=== PATIENT | female | born 1975 | race Caucasian/White ===

== ENCOUNTER 2016-04-21 12:27 | Emergency (ER) | payer OTHER ==
[~2016-04-21] VITALS: Ht 162.6 cm; Wt 80.0 kg
[2016-04-21 12:29] VITALS: BP 124/64; PULSE 77; RESP 15; TEMP 97.7; O2SAT 95
[2016-04-21 13:09] LABS: AUTOMATED NEUTROPHIL # 7.6 TH/MM3 (1.8-7.7); BASOPHIL # 0.1 TH/MM3 (0-0.2); BASOPHIL % 0.9 % (0.0-2.0); EOSINOPHIL # 0.5 TH/MM3 (0-0.4); EOSINOPHIL % 4.4 % (0.0-4.0); HEMO FLAGS DIFF FINAL; LYMPHOCYTE # 2.1 TH/MM3 (1.0-4.8); MEAN CELL VOLUME 92.6 FL (80.0-100.0); MEAN CORPUSCULAR HEMOGLOBIN 32.5 PG (27.0-34.0); MEAN CORPUSCULAR HGB CONC 35.1 % (32.0-36.0); NEUT % 69.7 % (16.0-70.0); PLATELET COUNT 339 TH/MM3 (150-450); RED CELL DISTRIBUTION WIDTH 12.3 % (11.6-17.2); WHITE BLOOD COUNT 10.9 TH/MM3 (4.0-11.0)
[2016-04-21 13:13] LABS: BLOOD, URINE MOD (NEG); GLUCOSE,URINE NEG (NEG); KETONE, URINE NEG (NEG); MUCUS URINE FEW /lpf (OCC); NITRITE,URINE NEG (NEG); SQUAMOUS EPITHELIAL CELL URINE 1 /hpf (0-5); URINE COLOR YELLOW (YELLW/STRAW)
[2016-04-21 13:15] LABS: COMMENT (UR) CULT NOT INDICATED; CULTURE IF INDICATED CULT NOT INDICATED
[2016-04-21 13:40] LABS: ALT (GPT) 32 U/L (10-53); ANION GAP 7 MEQ/L (5-15); AST (GOT) 19 U/L (15-37); BICARBONATE 27.2 MEQ/L (21.0-32.0); BLOOD UREA NITROGEN 14 MG/DL (7-18); CHLORIDE 107 MEQ/L (98-107); GLOMERULAR FILTRATION RATE 106 ML/MIN (>89); SODIUM (NA) 141 MEQ/L (136-145)
[2016-04-21 13:41] LABS: ALKALINE PHOSPHATASE 110 U/L (45-117); TOTAL BILIRUBIN ADULT 0.4 MG/DL (0.2-1.0)
--- NOTE | 2016-04-21 14:17 | PD ---
HPI Chief Complaint: GI Complaint Time Seen by Provider: 14:20 Travel History International Travel<30 days: No Contact w/Intl Traveler<30days: No Traveled to known affect area: No History of Present Illness HPI 41-year-old female with PMH of recently diagnosed lupus presents to the ED for evaluation of four-day history of nausea, vomiting and diarrhea. Gradual onset. No alleviating or exacerbating factors reported. She states that last episode of vomiting was yesterday. She endorses 2 episodes of loose, nonbloody stool this morning. She denies fever, chills, anorexia, abdominal pain, back pain or dysuria. Patient is currently menstruating. She also complains of scaly lesions in the hairline, present for "weeks." She also complains of chronic, nonproductive cough, worse in the morning. The patient is a current smoker. Patient states that she is currently living in a homeless residential, has not followed up with primary care regarding her lupus diagnosis. Takes no daily medications. Allergic to penicillin. PFSH Past Medical History ?: Not Social History Tobacco Use: Yes Allergies-Medications (Allergen,Severity, Reaction): Coded Allergies: Penicillin (Verified Allergy, Severe, 04/21/16) Reported Meds & Prescriptions Reported Meds & Active Scripts Active Imodium A-D (Loperamide HCl) 2 Mg Tab 2 Mg PO DIRECTED PRN One tablet after each loose stool. Not to exceed 8 tablets per day. Triamcinolone Topical (Triamcinolone Acetonide) 0.1 % Oint 1 Applic TOPICAL BID 15 Days Review of Systems Except as stated in HPI: all other systems reviewed are Neg Physical Exam Narrative GENERAL: Well-nourished, well-developed nontoxic appearing white female in no acute distress. SKIN: Warm and dry. Patient has an intradermal piercing in the midline of the anterior chest. There is mild surrounding erythema, no warmth or discharge. There is also a 1.5 cm erythematous lesions with scaly plaque in the hairline, consistent with psoriasis. HEAD: Normocephalic. Atraumatic. EYES: No scleral icterus. No injection or drainage. PERRLA. EOMI. ENT: Pearly jean tympanic membranes bilaterally. Nasal mucosa is moist. Oropharynx without erythema, edema or exudate. NECK: Supple, trachea midline. No JVD or lymphadenopathy. CARDIOVASCULAR: Regular rate and rhythm without murmurs, gallops, or rubs. 2+ DP and radial pulses bilaterally. RESPIRATORY: Breath sounds clear and equal bilaterally. No accessory muscle use. GASTROINTESTINAL: Abdomen soft, non-tender, nondistended. + Bowel sounds. Mild suprapubic tenderness. MUSCULOSKELETAL: No cyanosis, or edema. Patient is ambulatory and moves extremities spontaneously.. NEUROLOGICAL: Awake and alert. Cranial nerves II through XII intact. Motor and sensory grossly within normal limits. Five out of 5 muscle strength in all muscle groups. Normal speech. BACK: Nontender without obvious deformity. No CVA tenderness. Data Data Last Documented VS Vital Signs Date Time Temp Pulse Resp B/P Pulse Ox O2 Delivery O2 Flow Rate FiO2 04/21/16 12:29 97.7 77 15 124/64 95 Orders Urinalysis - C+S If Indicated (04/21/16 12:39) Ed Urine Pregnancytest Poc (04/21/16 12:39) Complete Blood Count With Diff (04/21/16 12:39) Comprehensive Metabolic Panel (04/21/16 12:39) Group A Rapid Strep Screen (04/21/16 14:35) Labs Laboratory Tests Test 04/21/16 12:50 White Blood Count 10.9 TH/MM3 Red Blood Count 4.10 MIL/MM3 Hemoglobin 13.4 GM/DL Hematocrit 38.0 % Mean Corpuscular Volume 92.6 FL Mean Corpuscular Hemoglobin 32.5 PG Mean Corpuscular Hemoglobin 35.1 % Concent Red Cell Distribution Width 12.3 % Platelet Count 339 TH/MM3 Mean Platelet Volume 7.7 FL Neutrophils (%) (Auto) 69.7 % Lymphocytes (%) (Auto) 19.0 % Monocytes (%) (Auto) 6.0 % Eosinophils (%) (Auto) 4.4 % Basophils (%) (Auto) 0.9 % Neutrophils # (Auto) 7.6 TH/MM3 Lymphocytes # (Auto) 2.1 TH/MM3 Monocytes # (Auto) 0.7 TH/MM3 Eosinophils # (Auto) 0.5 TH/MM3 Basophils # (Auto) 0.1 TH/MM3 CBC Comment DIFF FINAL Differential Comment Urine Color YELLOW Urine Turbidity CLEAR Urine pH 6.0 Urine Specific [place] 1.021 Urine Protein NEG mg/dL Urine Glucose (UA) NEG mg/dL Urine Ketones NEG mg/dL Urine Occult Blood MOD Urine Nitrite NEG Urine Bilirubin NEG Urine Urobilinogen LESS THAN 2.0 MG/DL Urine Leukocyte Esterase NEG Urine RBC 93 /hpf Urine WBC LESS THAN 1 /hpf Urine Squamous Epithelial 1 /hpf Cells Urine Mucus FEW /lpf Microscopic Urinalysis Comment CULT NOT INDICATED Sodium Level 141 MEQ/L Potassium Level 4.0 MEQ/L Chloride Level 107 MEQ/L Carbon Dioxide Level 27.2 MEQ/L Anion Gap 7 MEQ/L Blood Urea Nitrogen 14 MG/DL Creatinine 0.62 MG/DL Estimat Glomerular Filtration 106 ML/MIN Rate Random Glucose 78 MG/DL Calcium Level 8.6 MG/DL Total Bilirubin 0.4 MG/DL Aspartate Amino Transf 19 U/L (AST/SGOT) Alanine Aminotransferase 32 U/L (ALT/SGPT) Alkaline Phosphatase 110 U/L Total Protein 7.1 GM/DL Albumin 3.5 GM/DL [facility] Medical Decision Making Medical Screen Exam Complete: Yes Emergency Medical Condition: Yes Differential Diagnosis versus UTI versus gastritis versus gastroenteritis versus psoriasis versus other Narrative Course 41-year-old female with PMH of recently diagnosed lupus, current smoker presents to the ED for evaluation of four-day history of nausea, vomiting and diarrhea. Gradual onset. No alleviating or exacerbating factors reported. Last episode of vomiting was yesterday. She endorses 2 episodes of loose, nonbloody stool this morning. She denies fever, chills, anorexia, abdominal pain, back pain or dysuria. Patient is currently menstruating. She also complains of scaly lesions in the hairline, present for "weeks." She also complains of chronic, nonproductive cough, worse in the morning. On physical exam this is a well-appearing female in no acute distress. She does have plaque psoriasis in the hairline at the physical exam is otherwise unremarkable. Vitals reviewed, within normal limits. CBC: No leukocytosis or anemia. CMP unremarkable. UA: No indication for culture. Urine test negative. Rapid strep swab pending. Patient is well-appearing, hemodynamically stable. I'll prescribe a few doses of Imodium for continued loose stools, triamcinolone cream for plaque psoriasis. She is instructed to continue with hydration, take medications as prescribed, follow up with a lacquer polisher and primary care provider. She indicated understanding of instructions and is amenable to plan of care. She stable, discharged home. Diagnosis Primary Impression: Gastroenteritis Additional Impression: Plaque psoriasis Referrals: [facility] Primary Care Physician Additional Instructions: Rest, hydrate. Follow a bland or BRAT diet for the next few days and gradually reintroduce new foods. Take Imodium as directed. Triamcinolone cream applied to areas of plaque psoriasis 2 times a day until lesions are healed. Follow-up with the lacquer polisher. Follow up with the primary care provider this week. Return to the ED for any urgent or emergent medical condition. Med/Other Pt SpecificInfo: Prescription(s) given Scripts Loperamide (Imodium A-D)2 Mg Tab2 Mg PO DIRECTED PRN (DIARRHEA) #6 TAB Ref 0 One tablet after each loose stool. Not to exceed 8 tablets per day. Prov:Nick Mccallum MD 04/21/16 Triamcinolone Topical 0.1 % Oint1 Applic TOPICAL BID 15 Days Ref 15 Prov:Nick Mccallum MD 04/21/16 Disposition: 01 DISCHARGE HOME Condition: Stable Rosalee So Apr 21, 2016 14:17
[2016-04-21] MEDS ORDERED: TRIAM.1%T TOPICAL (14:42)
[2016-04-21] MEDS ORDERED: IMOD2TAB3 PO (14:42)
[2016-04-22] MEDS ORDERED: IBUP800T23 PO (20:22)
[2016-04-22] MEDS ORDERED: CLIN1CAP5 PO (20:22)
[2016-04-22] MEDS ORDERED: HYDR-3533 PO (20:23)
== END 2016-04-21 15:09 | disposition home or self-care (01) ==
LOC: NEPA 12:27
DX: K52.9 Noninfective gastroenteritis and colitis, unspecified (principal); L40.0 Psoriasis vulgaris; M32.9 Systemic lupus erythematosus, unspecified; F17.210 Nicotine dependence, cigarettes, uncomplicated
CPT/HCPCS: 80053; 81001; 84703; 85025; 87880; 99284

== ENCOUNTER 2016-04-22 17:02 | Emergency (ER) | payer OTHER ==
[~2016-04-22] VITALS: Ht 162.6 cm; Wt 84.5 kg
[~2016-04-22 17:02] MED LIST: IMOD2TAB3 PO; TRIAM.1%T TOPICAL
[2016-04-22 17:04] VITALS: BP 125/78; PULSE 94; RESP 20; TEMP 97.8; O2SAT 97
--- NOTE | 2016-04-22 19:41 | PD ---
HPI Chief Complaint: Skin Problem Time Seen by Provider: 19:41 Travel History International Travel<30 days: No Contact w/Intl Traveler<30days: No Traveled to known affect area: No History of Present Illness HPI 41-year-old female presents to the emergency department for evaluation of an infected piercing on her anterior chest. Patient states she got it 4 days ago. It became reddened and swollen 2 days ago and then had significant redness around it today. She went to the piercing place and had the piercing removed this morning. They did not start her on any antibiotics. She thought that removing the piercing would help to improve however the redness and pain has not gone away. She reports subjective fever and chills. No nausea or vomiting. No chest pain or tightness. No difficulty breathing. No other symptoms to report at this time. PFSH Past Medical History Medical History: Denies Significant Hx Tubal Ligation: Yes Social History Alcohol Use: No Tobacco Use: Yes Substance Use: No Allergies-Medications (Allergen,Severity, Reaction): Coded Allergies: Penicillin (Verified Allergy, Severe, 04/22/16) Reported Meds & Prescriptions Reported Meds & Active Scripts Active Lortab (Hydrocodone-Acetaminophen) 5-325 Mg Tab 1 Tab PO Q6H PRN Ibuprofen 800 Mg Tab 800 Mg PO Q8H PRN Clindamycin (Clindamycin HCl) 150 Mg Cap 300 Mg PO Q6H 10 Days Imodium A-D (Loperamide HCl) 2 Mg Tab 2 Mg PO DIRECTED PRN One tablet after each loose stool. Not to exceed 8 tablets per day. Triamcinolone Topical (Triamcinolone Acetonide) 0.1 % Oint 1 Applic TOPICAL BID 15 Days Review of Systems Except as stated in HPI: all other systems reviewed are Neg Physical Exam Narrative GENERAL: Well-nourished female patient, tearful but no acute distress SKIN: Warm and dry. 10 cm in diameter area of erythema on the mid anterior chest. At the center of it is a small pierced hole and I am able to express purulent drainage. HEAD: Atraumatic. Normocephalic. EYES: Pupils equal and round. No scleral icterus. No injection or drainage. ENT: No nasal bleeding or discharge. Mucous membranes pink and moist. NECK: Trachea midline. No JVD. CARDIOVASCULAR: Elevated rate and rhythm. No murmur appreciated. RESPIRATORY: No accessory muscle use. Clear to auscultation. Breath sounds equal bilaterally. GASTROINTESTINAL: Abdomen soft, non-tender, nondistended. Hepatic and splenic margins not palpable. MUSCULOSKELETAL: No obvious deformities. No clubbing. No cyanosis. No edema. NEUROLOGICAL: Awake and alert. No obvious cranial nerve deficits. Motor grossly within normal limits. Normal speech. PSYCHIATRIC: Appropriate mood and affect; insight and judgment normal. Data Data Last Documented VS Vital Signs Date Time Temp Pulse Resp B/P Pulse Ox O2 Delivery O2 Flow Rate FiO2 04/22/16 17:04 97.8 94 20 125/78 97 Room Air Orders Wound Culture And Gram Stain (04/22/16 19:38) Chest, Single Ap (04/22/16 ) Ketorolac Inj (Toradol Inj) (04/22/16 19:45) Clindamycin (Cleocin) (04/22/16 19:45) MDM Medical Decision Making Medical Screen Exam Complete: Yes Emergency Medical Condition: Yes Medical Record Reviewed: Yes Differential Diagnosis Abscess versus cellulitis versus erysipelas versus foreign body Narrative Course 41-year-old female presents to the emergency department for evaluation of a infected pierced chest. Area of erythema consistent with cellulitis. There is purulent drainage. Cultures obtained. No additional fluctuance. Chest x-ray shows no obvious foreign body. Patient does state the piercing was removed today of the piercing place. Patient is given pain medication and clindamycin here. She'll be discharged home on clindamycin and advised to return immediately with any acute worsening of symptoms. Diagnosis Primary Impression: Cellulitis of chest wall Referrals: Primary Care Physician Patient Instructions: Cellulitis (ED), General Instructions Departure Forms: Tests/Procedures, Work Release Enter return to work date: Apr 24, 2016 Additional Instructions: Warm compresses to the affected area Do not squeeze it Start antibiotics tomorrow morning and take them until they are all gone Return immediately to the emergency department with any acute worsening of symptoms Med/Other Pt SpecificInfo: Prescription(s) given Scripts Hydrocodone-Acetaminophen (Lortab)5-325 Mg Tab1 Tab PO Q6H PRN (PAIN GREATER THAN 6) #15 TAB Ref 0 Prov:Mike Hernandez MD 04/22/16 Ibuprofen 800 Mg [id number] Mg PO Q8H PRN (PAIN SCALE 1 TO 10) #30 TAB Ref 0 Prov:Awilda Rosenthal 04/22/16 Clindamycin 150 Mg [id number] Mg PO Q6H 10 Days Ref 0 Prov:Awilda Rosenthal 04/22/16 Disposition: 01 DISCHARGE HOME Condition: Stable Awilda Rosenthal Apr 22, 2016 19:41
[2016-04-22] MEDS ORDERED: CLINDAMYCIN 150 MG CAP PO ONE (19:45)
[2016-04-22] MEDS ORDERED: KETOROLAC TROMETHAMINE 60 MG/2 ML (IM) VIAL IM ONE (19:45)
[2016-04-22] MEDS ORDERED: CLIN1CAP5 PO (20:22)
[2016-04-22] MEDS ORDERED: IBUP800T23 PO (20:22)
[2016-04-22] MEDS ORDERED: HYDR-3533 PO (20:23)
--- NOTE | 2016-04-22 21:36 | RADRPT ---
EXAM DATE/TIME: 04/22/2016 19:50 [facility] COMPARISON: No previous studies available for comparison. INDICATIONS : Infected piercing removed at [facility]. MEDICAL HISTORY : None. SURGICAL HISTORY : None. ENCOUNTER: Initial ACUITY: 1 day PAIN SCORE: 6/10 LOCATION: chest [facility] FINDINGS: A single view of the chest demonstrates the lungs to be symmetrically aerated without evidence of mas s, infiltrate or effusion. The cardiomediastinal contours are unremarkable. Osseous structures are intact. CONCLUSION: No acute disease. Rome Bowen MD on April 22, 2016 at 21:34 Board Certified Radiologist. This report was verified electronically.
== END 2016-04-22 20:42 | disposition home or self-care (01) ==
LOC: NETRI 17:02
DX: L03.313 Cellulitis of chest wall (principal); B95.0 Streptococcus, group A, as the cause of diseases classified elsewhere; Z72.0 Tobacco use
CPT/HCPCS: 71010; 87070; 96372; 99283; J1885; 87205